=== PATIENT | female | born 1990 | race Caucasian/White ===

== ENCOUNTER 2021-08-21 16:17 | Inpatient (IN) | payer OTHER ==
[~2021-08-21] VITALS: Ht 170.2 cm; Wt 99.4 kg
[2021-08-21] MEDS ORDERED: PRENATAL TABLE1 EAC2 PO (16:51)
[2021-08-21] MEDS ORDERED: FISH OIL 1,2001 EAC4 PO (16:51)
[2021-08-21 16:52] LABS: BASOPHILS ABSOLUTE AUTO 0.03 K/mm3 (0.00-0.23); BASOPHILS PERCENT AUTO 0 % (0-2); EOSINOPHILS ABSOLUTE AUTO 0.09 K/mm3 (0.00-0.68); EOSINOPHILS PERCENT AUTO 1 % (0-6); Hematocrit 34.9 % (33.0-51.0); Hemoglobin 11.9 g/dL (11.5-16.0); IMMATURE GRAN PERCENT AUTO 1 % (0-1); LYMPHOCYTES ABSOLUTE AUTO 1.67 K/mm3 (0.84-5.20); LYMPHOCYTES PERCENT AUTO 18 % (21-46); MONOCYTES ABSOLUTE AUTO 0.72 K/mm3 (0.16-1.47); MONOCYTES PERCENT AUTO 8 % (4-13); Mean Corpuscular HGB 30.7 pg (26.0-34.0); Mean Corpuscular HGB Conc 34.1 g/dL (31.5-36.5); Mean Corpuscular Volume 90 fL (80-100); Mean Platelet Volume 11.8 fL (9.1-12.4); NEUTROPHILS ABSOLUTE AUTO 6.53 K/mm3 (1.96-9.15); NEUTROPHILS PERCENT AUTO 71 % (41-73); Platelet Count 132 K/mm3 (150-400); RDW Coefficient Variation 13.3 % (11.7-14.2); RDW Standard Deviation 43.8 fL (35.1-46.3); Red Blood Cell Count 3.88 M/mm3 (3.80-5.20); White Blood Cell Count 9.14 K/mm3 (4.00-11.30)
[2021-08-21] MEDS ORDERED: [UNRECOGNIZED DRUG - MIXTURE] PO (16:52)
[2021-08-21] MEDS ORDERED: PROBIOTIC1 EA13 PO (16:53)
[2021-08-21 17:09] LABS: Alanine Aminotransfer (ALT/SGP 16 U/L (12-78); Albumin, Blood 2.6 g/dL (3.4-5.0); Albumin/Globulin Ratio 0.6 (0.8-1.8); Alk Phos 182 U/L (50-136); Anion Gap 6 mmol/L (6-16); Aspartate Aminotrans (AST/SGOT 15 U/L (12-37); Bilirubin, Total 0.2 mg/dL (0.1-1.0); Blood Urea Nitrogen 9 mg/dL (8-24); Bun/Creatinine Ratio 13.2 (12.0-20.0); CO2, Blood 22 mmol/L (21-32); Calcium, Blood 9.1 mg/dL (8.5-10.1); Chloride, Blood 107 mmol/L (98-108); Creatinine, Blood 0.68 mg/dL (0.40-1.00); Globulin, Blood 4.3 g/dL (2.2-4.0); Glomerular Filtration Rate >60 (60-); Glucose, Blood 93 mg/dL (70-99); Potassium, Blood 4.1 mmol/L (3.5-5.5); Sodium, Blood 135 mmol/L (136-145); Total Protein, Blood 6.9 g/dL (6.4-8.2)
[2021-08-21 17:29] LABS: Influenza A, PCR NEGATIVE (NEGATIVE); Influenza B, PCR NEGATIVE (NEGATIVE); Resp Syncytial Virus, PCR NEGATIVE (NEGATIVE); SARS-Cov-2 (COVID-19) PCR, MMC NEGATIVE (NEGATIVE)
[2021-08-23 03:04] LABS: PCO2 Cord - Arterial 45.1 mmHg (40-50); PO2 Cord - Arterial 17.5 mmHg (16-20); pH Cord - Arterial 7.34 (7.28-7.35)
[2021-08-23 03:08] LABS: PCO2 Cord - Venous 39.4 mmHg (40-50); PO2 Cord - Venous 18.5 mmHg (28-32); pH Umbilical Cord - Venous 7.37 (7.26-7.35)
[2021-08-23 12:40] LABS: BASOPHILS ABSOLUTE AUTO 0.02 K/mm3 (0.00-0.23); BASOPHILS PERCENT AUTO 0 % (0-2); EOSINOPHILS PERCENT AUTO 0 % (0-6); Hematocrit 25.7 % (33.0-51.0); Hemoglobin 8.6 g/dL (11.5-16.0); IMMATURE GRAN ABSOLUTE AUTO 0.09 K/mm3 (0.00-0.10); IMMATURE GRAN PERCENT AUTO 1 % (0-1); LYMPHOCYTES ABSOLUTE AUTO 1.79 K/mm3 (0.84-5.20); LYMPHOCYTES PERCENT AUTO 14 % (21-46); MONOCYTES ABSOLUTE AUTO 0.79 K/mm3 (0.16-1.47); MONOCYTES PERCENT AUTO 6 % (4-13); Mean Corpuscular HGB 30.6 pg (26.0-34.0); Mean Corpuscular HGB Conc 33.5 g/dL (31.5-36.5); Mean Corpuscular Volume 92 fL (80-100); Mean Platelet Volume 12.4 fL (9.1-12.4); NEUTROPHILS ABSOLUTE AUTO 9.95 K/mm3 (1.96-9.15); NEUTROPHILS PERCENT AUTO 79 % (41-73); Platelet Count 115 K/mm3 (150-400); RDW Coefficient Variation 13.3 % (11.7-14.2); Red Blood Cell Count 2.81 M/mm3 (3.80-5.20); White Blood Cell Count 12.64 K/mm3 (4.00-11.30)
[2021-08-25] MEDS ORDERED: ACET500 PO (07:42)
[2021-08-25] MEDS ORDERED: IBUP800 PO (07:42)
[2021-08-25] MEDS ORDERED: DOCU100 (09:54)
[2021-08-25] MEDS ORDERED: Percocet 5-3251 EACH PO (09:54)
[2021-08-25] MEDS ORDERED: ASPIR 8181 M1 PO (09:55)
== END 2021-08-25 10:10 | disposition home or self-care (01) | DRG 788 ==
LOC: OBS 16:17 → BC 16:18 → OBS 16:24 → BC 16:26
PROVIDERS: Obstetrics & Gynecology; ADMIT Nurse Practitioner Obstetrics & Gynecology
PROC: 3E0P7VZ Introduction of Hormone into Female Reproductive, Via Natural or Artificial Opening (ICD-10-PCS; 2021-08-23)
PROC: 00HU33Z Insertion of Infusion Device into Spinal Canal, Percutaneous Approach (ICD-10-PCS; 2021-08-23)
PROC: 3E0R3BZ Introduction of Anesthetic Agent into Spinal Canal, Percutaneous Approach (ICD-10-PCS; 2021-08-23)
PROC: 10907ZC Drainage of Amniotic Fluid, Therapeutic from Products of Conception, Via Natural or Artificial Opening (ICD-10-PCS; 2021-08-23)
PROC: 10H07YZ Insertion of Other Device into Products of Conception, Via Natural or Artificial Opening (ICD-10-PCS; 2021-08-23)
PROC: 10D00Z1 Extraction of Products of Conception, Low, Open Approach (ICD-10-PCS; principal; 2021-08-23 01:30)
DX: O48.0 Post-term pregnancy (principal); O13.4 Gestational [pregnancy-induced] hypertension without significant proteinuria, complicating childbirth; Z20.822 Contact with and (suspected) exposure to COVID-19; O36.63X0 Maternal care for excessive fetal growth, third trimester, not applicable or unspecified; O77.0 Labor and delivery complicated by meconium in amniotic fluid; Z67.10 Type A blood, Rh positive; Z3A.40 40 weeks gestation of pregnancy; Z37.0 Single live birth; Z90.89 Acquired absence of other organs; Z79.82 Long term (current) use of aspirin; Z79.899 Other long term (current) drug therapy; O99.03 Anemia complicating the puerperium
CPT/HCPCS: 0241U; 36415; 51702; 80053; 82803; 85025; 86850; 86900; 86901; A9270; J0690; J1885; J2001; J2405; J2590; J2765; J3010; J7120

== ENCOUNTER 2023-10-29 06:12 | Inpatient (IN) | payer OTHER ==
[2023-10-29] VITALS (26 sets, daily range): BP systolic 101–145; BP diastolic 52–88
[~2023-10-29] VITALS: Ht 167.6 cm; Wt 127.0 kg
[~2023-10-29 06:12] MED LIST: ACET500 PO; ASPIR 8181 M1 PO; DOCU100; FISH OIL 1,2001 EAC4 PO; IBUP800 PO; PRENATAL TABLE1 EAC2 PO; PROBIOTIC1 EA13 PO; Percocet 5-3251 EACH PO; [UNRECOGNIZED DRUG - MIXTURE] PO
[2023-10-29] MEDS ORDERED: Bupivacaine 0.5% HCl 5 MG/ML 30MLVIAL XX SCH (08:40)
[2023-10-29] MEDS ORDERED: Oxytocin 10 Unit / ML Vial IM SCH (08:40)
[2023-10-29] MEDS ORDERED: Lidocaine HCl 1% 30 ML SDV XX SCH (08:40)
[2023-10-29] MEDS ORDERED: Bupivacaine HCl 2.5 MG/ML 10ML P/F Injection XX SCH (08:40)
[2023-10-29] MEDS ORDERED: Lactated Ringer's 1,000 ML IV PRN (08:40)
[2023-10-29] MEDS ORDERED: Methylergonovine Maleate 0.2MG / ML 1ML Amp IM SCH (08:40)
[2023-10-29] MEDS ORDERED: Castor Oil 59.146 ML BTL TOP SCH (08:40)
[2023-10-29] MEDS ORDERED: FentaNYL 2mcg/ml-Bup 0.1% Epd 250 ML EPI PRN (08:40)
[2023-10-29] MEDS ORDERED: ePHEDrine Sulfate 50 MG/ML 1ML Injection XX PRN (08:40)
[2023-10-29] MEDS ORDERED: LR Oxytocin 20 Units 1,000 ML IV SCH (08:40)
[2023-10-29] MEDS ORDERED: Lactated Ringer's 1,000 ML IV SCH ×3 (08:40→21:35)
[2023-10-29] MEDS ORDERED: Misoprostol 200 MCG Tab PR SCH (08:40)
[2023-10-29 08:50] LABS: BASOPHILS ABSOLUTE AUTO 0.02 K/mm3 (0.00-0.23); BASOPHILS PERCENT AUTO 0 % (0-2); EOSINOPHILS ABSOLUTE AUTO 0.04 K/mm3 (0.00-0.68); EOSINOPHILS PERCENT AUTO 0 % (0-6); Hematocrit 32.8 % (33.0-51.0); IMMATURE GRAN PERCENT AUTO 1 % (0-1); LYMPHOCYTES ABSOLUTE AUTO 1.88 K/mm3 (0.84-5.20); LYMPHOCYTES PERCENT AUTO 14 % (21-46); MONOCYTES ABSOLUTE AUTO 0.84 K/mm3 (0.16-1.47); MONOCYTES PERCENT AUTO 6 % (4-13); Mean Corpuscular HGB 29.5 pg (26.0-34.0); Mean Corpuscular HGB Conc 33.5 g/dL (31.5-36.5); Mean Corpuscular Volume 88 fL (80-100); Mean Platelet Volume 11.6 fL (9.1-12.4); NEUTROPHILS ABSOLUTE AUTO 10.87 K/mm3 (1.96-9.15); NEUTROPHILS PERCENT AUTO 79 % (41-73); Platelet Count 156 K/mm3 (150-400); RDW Coefficient Variation 14.7 % (11.7-14.2); RDW Standard Deviation 47.7 fL (35.1-46.3); Red Blood Cell Count 3.73 M/mm3 (3.80-5.20); White Blood Cell Count 13.75 K/mm3 (4.00-11.30)
[2023-10-29] MEDS ORDERED: FentaNYL Citrate 50 MCG/ML 2 ML Injection IV PRN (08:55)
[2023-10-29] MEDS ORDERED: Ondansetron HCl 2 MG / ML 2ML Vial ONE (08:57)
[2023-10-29] MEDS ORDERED: Ondansetron HCl 2 MG / ML 2ML Vial IV PRN (09:00)
[2023-10-29] MEDS ORDERED: Calcium Carbonate 500 MG Tab Chew PO PRN (16:25)
[2023-10-29] MEDS ORDERED: Acetaminophen 325 MG TABLET PO PRN (20:50)
[2023-10-29] MEDS ORDERED: Simethicone 80 MG Chew PO PRN (21:05)
[2023-10-29] MEDS ORDERED: CeFAZolin Sodium 3,000 MG in NS 100 ML IV SCH (21:35)
[2023-10-29] MEDS ORDERED: Azithromycin 500 MG in NS 250 ML IV SCH (21:40)
[2023-10-29] MEDS ORDERED: Metoclopramide HCl 5MG / ML 2ML Vial IV ONE (21:50)
[2023-10-29] MEDS ORDERED: Citric Acid/Sodium Citrate 30 ML BTL PO ONE (21:50)
[2023-10-29] MEDS ORDERED: FentaNYL Citrate 50 MCG/ML 2 ML Injection ONE (22:12)
[2023-10-29] MEDS ORDERED: Bupivacaine 0.75%/Dext 8.25% 2 ML Amp IT ONE (22:12)
[2023-10-29] MEDS ORDERED: ePHEDrine Sulfate 50 MG/ML 1ML Injection ONE (23:17)
[2023-10-29] MEDS ORDERED: Oxytocin 10 Unit / ML Vial ONE ×2 (23:26→23:39)
--- NOTE | 2023-10-29 23:31 | NUR ---
10/29/23 2331 Mariposa Spencer SPINAL NERVE BLOCK PLACED BY DR. POST UPON ENTRY TO OR. PT TOLERATED WELL.
[2023-10-30] VITALS (21 sets, daily range): BP systolic 96–130; BP diastolic 50–72
[2023-10-30] MEDS ORDERED: Methylergonovine Maleate 0.2 MG Tab PO PRN (00:20)
[2023-10-30] MEDS ORDERED: Magnesium Hydroxide Conc 10 ML UDC PO PRN (00:20)
[2023-10-30] MEDS ORDERED: Acetaminophen 500 MG Tab PO PRN (00:20)
[2023-10-30] MEDS ORDERED: Misoprostol 200 MCG Tab PR PRN (00:20)
[2023-10-30] MEDS ORDERED: Carboprost Tromethamine 250 MCG/ML 1ML Amp IM PRN (00:25)
[2023-10-30] MEDS ORDERED: Ondansetron HCl 2 MG / ML 2ML Vial IV PRN (00:25)
[2023-10-30] MEDS ORDERED: DiphenhydrAMINE HCL 25 MG Cap PO PRN (00:25)
[2023-10-30] MEDS ORDERED: OxyCODONE HCL 5 MG TAB PO PRN (00:25)
[2023-10-30] MEDS ORDERED: Lanolin Cream TOP PRN (00:25)
[2023-10-30] MEDS ORDERED: Simethicone 80 MG Chew PO PRN (00:30)
[2023-10-30] MEDS ORDERED: Lactated Ringer's 1,000 ML IV SCH (00:30)
[2023-10-30] MEDS ORDERED: LR Oxytocin 20 Units 1,000 ML IV SCH (00:30)
[2023-10-30] MEDS ORDERED: OxyCODONE 5 mg/Acetamin 325 mg TABLET PO PRN (00:30)
[2023-10-30] MEDS ORDERED: Ketorolac Tromethamine 30mg Vial IV SCH (01:00)
[2023-10-30 06:28] LABS: BASOPHILS ABSOLUTE AUTO 0.01 K/mm3 (0.00-0.23); BASOPHILS PERCENT AUTO 0 % (0-2); EOSINOPHILS PERCENT AUTO 0 % (0-6); Hematocrit 28.2 % (33.0-51.0); Hemoglobin 9.5 g/dL (11.5-16.0); IMMATURE GRAN ABSOLUTE AUTO 0.11 K/mm3 (0.00-0.10); IMMATURE GRAN PERCENT AUTO 1 % (0-1); LYMPHOCYTES ABSOLUTE AUTO 1.89 K/mm3 (0.84-5.20); LYMPHOCYTES PERCENT AUTO 11 % (21-46); MONOCYTES ABSOLUTE AUTO 1.29 K/mm3 (0.16-1.47); MONOCYTES PERCENT AUTO 7 % (4-13); Mean Corpuscular HGB 29.9 pg (26.0-34.0); Mean Corpuscular HGB Conc 33.7 g/dL (31.5-36.5); Mean Corpuscular Volume 89 fL (80-100); Mean Platelet Volume 11.3 fL (9.1-12.4); NEUTROPHILS PERCENT AUTO 81 % (41-73); Platelet Count 153 K/mm3 (150-400); RDW Coefficient Variation 14.7 % (11.7-14.2); RDW Standard Deviation 47.7 fL (35.1-46.3); Red Blood Cell Count 3.18 M/mm3 (3.80-5.20)
[2023-10-30] MEDS ORDERED: Ibuprofen 400 MG Tab PO SCH (08:00)
[2023-10-30] MEDS ORDERED: Docusate Sodium 100 MG Cap PO SCH (09:00)
[2023-10-30] MEDS ORDERED: Prenatal Vit/FE Fumarate/FA 1 Tab PO SCH (09:00)
[2023-10-31 01:42] VITALS: BP 126/69
[2023-10-31 04:55] VITALS: BP 123/61
[2023-10-31 07:28] VITALS: BP 133/58
[2023-10-31] MEDS ORDERED: IBUP800 PO (10:09)
[2023-10-31] MEDS ORDERED: Percocet 5-3251 EACH PO (10:09)
--- NOTE | 2023-10-31 12:00 | NUR ---
PT DISCHARGED TO HOME WITH BABY. D/C INSTRUCTIONS REVIEWED, QUESTIONS ANSWERED, AND COPY PROVIDED. PT DEMONSTRATED PROPER CAR SEAT USE. ESCORTED TO FRONT BY CRUZITO MARX. ALL BELONGINGS WITH PT.
--- NOTE | 2023-11-02 08:45 | NUR ---
UPDATED DOCUMENTATION L&D SUMMARY PER EMR
== END 2023-10-31 12:00 | disposition home or self-care (01) | DRG 788 ==
LOC: OBS 06:12 → BC 06:21 → OBS 08:32 → BC 08:34
PROVIDERS: Obstetrics & Gynecology; ADMIT Advanced Practice Midwife
PROC: 10D00Z1 Extraction of Products of Conception, Low, Open Approach (ICD-10-PCS; principal; 2023-10-29 21:45)
DX: O48.0 Post-term pregnancy (principal); O34.211 Maternal care for low transverse scar from previous cesarean delivery; Z90.49 Acquired absence of other specified parts of digestive tract; Z98.890 Other specified postprocedural states; Z79.82 Long term (current) use of aspirin; Z79.899 Other long term (current) drug therapy; Z3A.40 40 weeks gestation of pregnancy; Z37.0 Single live birth
CPT/HCPCS: 36415; 51702; 81003; 85025; 86850; 86900; 86901; 86923; A9270; J0456; J0690; J1885; J2405; J2590; J2765; J3010; J7050; J7120

== ENCOUNTER 2025-02-20 10:47 | Emergency (ER) | payer BC ==
[~2025-02-20] VITALS: Ht 165.1 cm; Wt 102.1 kg
[2025-02-20 12:54] LABS: BASOPHILS ABSOLUTE AUTO 0.03 K/mm3 (0.00-0.23); BASOPHILS PERCENT AUTO 0 % (0-2); EOSINOPHILS ABSOLUTE AUTO 0.07 K/mm3 (0.00-0.68); EOSINOPHILS PERCENT AUTO 1 % (0-6); Hematocrit 41.3 % (33.0-51.0); Hemoglobin 14.2 g/dL (11.5-16.0); IMMATURE GRAN ABSOLUTE AUTO 0.02 K/mm3 (0.00-0.10); IMMATURE GRAN PERCENT AUTO 0 % (0-1); LYMPHOCYTES ABSOLUTE AUTO 1.99 K/mm3 (0.84-5.20); LYMPHOCYTES PERCENT AUTO 26 % (21-46); MONOCYTES ABSOLUTE AUTO 0.44 K/mm3 (0.16-1.47); MONOCYTES PERCENT AUTO 6 % (4-13); Mean Corpuscular HGB Conc 34.4 g/dL (31.5-36.5); Mean Corpuscular Volume 84 fL (80-100); NEUTROPHILS ABSOLUTE AUTO 5.25 K/mm3 (1.96-9.15); NEUTROPHILS PERCENT AUTO 67 % (41-73); NRBC ABSOLUTE 0.00 K/mm3 (0.00-0.02); NRBC Auto 0.0 /100 WBC (0.0-0.2); Platelet Count 202 K/mm3 (150-400); RDW Coefficient Variation 13.6 % (11.7-14.2); RDW Standard Deviation 42.2 fL (35.1-46.3)
[2025-02-20 13:10] LABS: Source, Urine Clean Catch
[2025-02-20 13:13] LABS: Bilirubin, Urine Neg (Neg); Glucose Qualitative, Urine Neg (Neg); Ketones, Urine Neg (Neg); Leukocyte Esterase, Urine Neg (Neg); Protein, Urine Neg (Neg); Specific Gravity, Urine 1.010 (1.003-1.022); Urobilinogen, Urine NORM (Normal)
[2025-02-20 13:24] LABS: Color, Urine Pale Yellow (P-Yellow)
[2025-02-20 13:25] LABS: White Blood Cells, Urine 0-2 /hpf (0-5)
[2025-02-20 14:32] VITALS: BP 142/86
[2025-02-20 15:02] LABS: Alanine Aminotransfer (ALT/SGP 19.0 U/L (12-78); Albumin, Blood 3.5 g/dL (3.4-5.0); Albumin/Globulin Ratio 0.9 (0.8-1.8); Anion Gap 9.0 mmol/L (3-11); Aspartate Aminotrans (AST/SGOT 11.0 U/L (12-37); Beta HCG, Quantitative, Serum 1203.0 mIU/mL (0-3); Bilirubin, Total 0.3 mg/dL (0.1-1.0); Blood Urea Nitrogen 8.0 mg/dL (8-24); CO2, Blood 23.0 mmol/L (21-32); Calcium, Blood 9.6 mg/dL (8.5-10.1); Chloride, Blood 109.0 mmol/L (98-108); Creatinine, Blood 0.56 mg/dL (0.40-1.00); Globulin, Blood 3.8 g/dL (2.2-4.0); Glucose, Blood 102.0 mg/dL (70-99); Potassium, Blood 3.8 mmol/L (3.5-5.5); Sodium, Blood 137.0 mmol/L (136-145); Total Protein, Blood 7.3 g/dL (6.4-8.2)
== END 2025-02-20 14:33 | disposition home or self-care (01) ==
LOC: ER 10:47
PROVIDERS: Student in an Organized Health Care Education/Training Program
DX: O03.9 Complete or unspecified spontaneous abortion without complication (principal); Z79.899 Other long term (current) drug therapy
CPT/HCPCS: 76815; 80053; 81001; 84702; 85025; 86900; 86901; 99284-25

== ENCOUNTER 2025-02-22 20:38 | Inpatient (IN) | payer BC ==
[~2025-02-22] VITALS: Ht 165.1 cm; Wt 99.0 kg
[2025-02-22 21:09] LABS: BASOPHILS ABSOLUTE AUTO 0.04 K/mm3 (0.00-0.23); BASOPHILS PERCENT AUTO 0 % (0-2); EOSINOPHILS ABSOLUTE AUTO 0.05 K/mm3 (0.00-0.68); EOSINOPHILS PERCENT AUTO 0 % (0-6); Hematocrit 36.3 % (33.0-51.0); Hemoglobin 12.5 g/dL (11.5-16.0); IMMATURE GRAN ABSOLUTE AUTO 0.11 K/mm3 (0.00-0.10); IMMATURE GRAN PERCENT AUTO 1 % (0-1); LYMPHOCYTES ABSOLUTE AUTO 1.87 K/mm3 (0.84-5.20); LYMPHOCYTES PERCENT AUTO 10 % (21-46); MONOCYTES ABSOLUTE AUTO 0.54 K/mm3 (0.16-1.47); MONOCYTES PERCENT AUTO 3 % (4-13); Mean Corpuscular HGB Conc 34.4 g/dL (31.5-36.5); Mean Corpuscular Volume 84 fL (80-100); NEUTROPHILS ABSOLUTE AUTO 17.02 K/mm3 (1.96-9.15); NEUTROPHILS PERCENT AUTO 87 % (41-73); NRBC ABSOLUTE 0.00 K/mm3 (0.00-0.02); NRBC Auto 0.0 /100 WBC (0.0-0.2); Platelet Count 256 K/mm3 (150-400); RDW Coefficient Variation 13.8 % (11.7-14.2); RDW Standard Deviation 42.6 fL (35.1-46.3)
[2025-02-22 21:31] LABS: Alanine Aminotransfer (ALT/SGP 16.0 U/L (12-78); Albumin, Blood 3.3 g/dL (3.4-5.0); Albumin/Globulin Ratio 1.0 (0.8-1.8); Anion Gap 11.0 mmol/L (3-11); Aspartate Aminotrans (AST/SGOT 9.0 U/L (12-37); Bilirubin, Total 0.3 mg/dL (0.1-1.0); Blood Urea Nitrogen 12.0 mg/dL (8-24); CO2, Blood 19.0 mmol/L (21-32); Calcium, Blood 9.0 mg/dL (8.5-10.1); Chloride, Blood 111.0 mmol/L (98-108); Creatinine, Blood 0.68 mg/dL (0.40-1.00); Globulin, Blood 3.3 g/dL (2.2-4.0); Glucose, Blood 220.0 mg/dL (70-99); Potassium, Blood 3.5 mmol/L (3.5-5.5); Sodium, Blood 137.0 mmol/L (136-145); Total Protein, Blood 6.6 g/dL (6.4-8.2)
[2025-02-22] MEDS ORDERED: NS 1,000 ML IV SCH (22:20)
[2025-02-22] MEDS ORDERED: Tranexamic Acid 100 ML IV ONE (22:40)
[2025-02-23] VITALS (33 sets, daily range): BP systolic 96–1238; BP diastolic 59–91
[2025-02-23] MEDS ORDERED: Ondansetron HCl 2 MG / ML 2ML Vial IV PRN ×3 (00:55→11:05)
[2025-02-23] MEDS ORDERED: Ondansetron HCl 2 MG / ML 2ML Vial IV ONE (03:00)
[2025-02-23 03:38] LABS: Hematocrit 36.8 % (33.0-51.0); Hemoglobin 12.6 g/dL (11.5-16.0); Mean Corpuscular HGB Conc 34.2 g/dL (31.5-36.5); Mean Corpuscular Volume 85 fL (80-100); NRBC ABSOLUTE 0.00 K/mm3 (0.00-0.02); NRBC Auto 0.0 /100 WBC (0.0-0.2); RDW Coefficient Variation 13.3 % (11.7-14.2); RDW Standard Deviation 41.3 fL (35.1-46.3)
[2025-02-23 03:39] LABS: Platelet Count 252 K/mm3 (150-400)
[2025-02-23 03:54] LABS: BAND PERCENT MAN 4 % (0-8); BASOPHILS ABSOLUTE MAN 0.00 K/mm3 (0.00-0.23); BASOPHILS PERCENT MAN 0 % (0-2); EOSINOPHILS ABSOLUTE MAN 0.00 K/mm3 (0.00-0.68); EOSINOPHILS PERCENT MAN 0 % (0-6); LYMPHOCYTES ABSOLUTE MAN 1.34 K/mm3 (0.84-5.20); LYMPHOCYTES PERCENT MAN 7 % (21-46); METAMYELOCYTE ABSOLUTE MAN 0.19 K/mm3 (0.00-0.00); METAMYELOCYTE PERCENT MAN 1 % (0-0); MONOCYTES ABSOLUTE MAN 0.38 K/mm3 (0.16-1.47); MONOCYTES PERCENT MAN 2 % (4-13); NEUTROPHILS ABSOLUTE MAN 17.28 K/mm3 (1.96-9.15); SEG NEUTROPHILS PERCENT MAN 86 % (41-73)
[2025-02-23] MEDS ORDERED: Ketorolac Tromethamine 15mg Vial IV PRN (05:15)
--- NOTE | 2025-02-23 08:19 | NUR ---
Call to answering service for Dr. Justice at 0745, reporting pt's symptoms of HR 120-135, low blood pressure (initially 98 systolic) with reported dizzyness, weakness and racing heart by pt. LR infusing at 125 cc/hour. Pt soaked a large pad and attends in 1 hour and passed large blood clot when we were initially assessing her. Denies cramping at this time. Reports that she vomited blood last night in the ED. No reply, so called Dr. Justice cell phone at this time 0815 to again report the pt's condition and request CBC to be done sooner. No other orders at this time, except to keep the Pt NPO for possible D&C. Asked if hospitalist consult is needed, and Dr. Justice declined at this time.
[2025-02-23 09:00] LABS: BASOPHILS ABSOLUTE AUTO 0.04 K/mm3 (0.00-0.23); BASOPHILS PERCENT AUTO 0 % (0-2); EOSINOPHILS ABSOLUTE AUTO 0.00 K/mm3 (0.00-0.68); EOSINOPHILS PERCENT AUTO 0 % (0-6); Hematocrit 30.2 % (33.0-51.0); Hemoglobin 10.5 g/dL (11.5-16.0); IMMATURE GRAN ABSOLUTE AUTO 0.27 K/mm3 (0.00-0.10); IMMATURE GRAN PERCENT AUTO 1 % (0-1); LYMPHOCYTES ABSOLUTE AUTO 2.21 K/mm3 (0.84-5.20); LYMPHOCYTES PERCENT AUTO 11 % (21-46); MONOCYTES ABSOLUTE AUTO 0.49 K/mm3 (0.16-1.47); MONOCYTES PERCENT AUTO 2 % (4-13); Mean Corpuscular HGB Conc 34.8 g/dL (31.5-36.5); Mean Corpuscular Volume 84 fL (80-100); NEUTROPHILS ABSOLUTE AUTO 17.50 K/mm3 (1.96-9.15); NEUTROPHILS PERCENT AUTO 85 % (41-73); NRBC ABSOLUTE 0.00 K/mm3 (0.00-0.02); NRBC Auto 0.0 /100 WBC (0.0-0.2); Platelet Count 300 K/mm3 (150-400); RDW Coefficient Variation 13.7 % (11.7-14.2); RDW Standard Deviation 42.4 fL (35.1-46.3)
--- NOTE | 2025-02-23 09:10 | NUR ---
NOTED hgb has dropped to 10. Call to Dr. Justcie.
--- NOTE | 2025-02-23 09:10 | NUR ---
UPDATE DR ROMERO CONTACTED REGARDING PATIENT LAB RESULTS. PATIENT CONTINUES TO REPORT DIZZINESS AND FEELING FAINT. PROVIDER TO ROUND ON PATIENT THIS AM TO ASSESS, TO OBTAIN CONSENT FOR PROCEDURE AT THIS TIME. 0920 DR ROMERO AT BEDSIDE.
[2025-02-23] MEDS ORDERED: Tranexamic Acid 100 ML IV SCH (09:40)
[2025-02-23] MEDS ORDERED: CeFAZolin Sodium 2,000 MG in NS 100 ML IV SCH (09:40)
[2025-02-23] MEDS ORDERED: Methylergonovine Maleate 0.2MG / ML 1ML Amp ONE (09:57)
--- NOTE | 2025-02-23 09:59 | NUR ---
Pt taken to OR for D&C with Dr. Justice
--- NOTE | 2025-02-23 10:02 | NUR ---
History, Chart, Medications and Allergies reviewed before start of procedure. Pre-Op teaching done. Pt verbalizes understanding. Patient confirms NPO status and agrees with scheduled surgery.
[2025-02-23] MEDS ORDERED: Etomidate 2MG / ML 10ML Vial ONE (10:09)
[2025-02-23] MEDS ORDERED: Midazolam HCl 1MG / ML 2ML Vial ONE (10:14)
[2025-02-23] MEDS ORDERED: FentaNYL Citrate 50 MCG/ML 2 ML Injection ONE (10:14)
[2025-02-23] MEDS ORDERED: Ondansetron HCl 2 MG / ML 2ML Vial ONE (10:21)
[2025-02-23] MEDS ORDERED: Rocuronium Bromide 10 MG/ML 5ML Injection IV ONE (10:21)
[2025-02-23] MEDS ORDERED: Dexamethasone Sod Phos 10 MG/ML 1ML VIAL ONE (10:21)
[2025-02-23] MEDS ORDERED: Sugammadex Sodium 200 MG/2ML SDV (100 MG/ML) ONE ×2 (10:42→10:56)
[2025-02-23] MEDS ORDERED: Metoclopramide HCl 5MG / ML 2ML Vial IV PRN (11:10)
[2025-02-23] MEDS ORDERED: HydrALAZINE HCl 20 MG / ML 1ML Vial IV PRN (11:10)
[2025-02-23] MEDS ORDERED: ePHEDrine Sulfate 50 MG/ML 1ML Injection IV PRN (11:10)
[2025-02-23] MEDS ORDERED: FentaNYL Citrate 50 MCG/ML 2 ML Injection IV PRN (11:10)
[2025-02-23] MEDS ORDERED: HYDROmorphone HCl/Pf 1MG SYR IV PRN ×2 (11:10)
[2025-02-23] MEDS ORDERED: OxyCODONE 5 mg/Acetamin 325 mg TABLET PO PRN (11:15)
[2025-02-23] MEDS ORDERED: Ketorolac Tromethamine 30mg Vial IV PRN (11:25)
[2025-02-23 14:18] LABS: Hematocrit 24.1 % (33.0-51.0); Hemoglobin 8.6 g/dL (11.5-16.0); Mean Corpuscular HGB Conc 35.7 g/dL (31.5-36.5); Mean Corpuscular Volume 84 fL (80-100); NRBC ABSOLUTE 0.00 K/mm3 (0.00-0.02); NRBC Auto 0.0 /100 WBC (0.0-0.2); Platelet Count 200 K/mm3 (150-400); RDW Coefficient Variation 13.9 % (11.7-14.2); RDW Standard Deviation 43.0 fL (35.1-46.3)
--- NOTE | 2025-02-23 15:13 | NUR ---
Pt up to BSC with RN assistance; she was lightheaded and dizzy. Heart rate increased to 150 while up. Pt assisted back to bed. Hgb results noted 8; Dr. Justice called, and 2 u PRBCs approved to administer at this time.
[2025-02-23] MEDS ORDERED: NS 500 ML IV SCH (15:15)
--- NOTE | 2025-02-23 18:39 | NUR ---
UPDATE ATTEMPTED TO CONTACT PROVIDER REGARDING POTENTIAL LAB ORDERS AFTER SECOND BLOOD TRANSFUSION.
--- NOTE | 2025-02-23 19:16 | NUR ---
No symptoms during the 15 minutes of 2nd PRBC infusion. V/s WNL; rate increased to 150 cc/hour. BEdside shift report done.
--- NOTE | 2025-02-23 19:21 | NUR ---
SHIFT SUMMARY PATIENT IS ALERT AND ORIENTED, ABLE TO FOLLOW COMMANDS AND MAKE NEEDS KNOWN. PATIENT REPORTS SIGNIFICANT DIZZINESS THROUGHOUT SHIFT, PRIMARILY WITH POSITION CHANGES. TELE IN PLACE, HR 100'S-150'S, INCREASED TACHYCARDIA WITH EXERTION. PATIENT SOAKING THROUGH PADS AND ATTENDS WITHIN 1.5 HOURS, PROVIDER NOTIFIED, D&C DONE THIS AM. PATIENT RECEIVED TRANSFUSIONS THIS SHIFT WITH IMPROVEMENT OF SYMPTOMS BY SHIFT CHANGE. PATIENT REPORTING INTERMITTENT DIZZINESS. PATIENT IS A 1P ASSIST TO BSC. PATIENT IS IN BED, BED IN LOWEST POSITION, CALL LIGHT WITHING REACH. BLOOD TRANSFUSING, VSS AFTER FIRST 15 MINUTES, REPORT GIVEN TO HOSE TESTER RN.
[2025-02-24 00:02] VITALS: BP 123/66
[2025-02-24 04:00] VITALS: BP 103/67
--- NOTE | 2025-02-24 06:00 | NUR ---
SHIFT SUMMARY PT HAS TOLERATED NIGHT WELL WITH NO SIGNIFICANT EVENTS OR CHANGES IN STATUS. PT RECEIVED REMAINDER OF BLOOD PRODUCTS AND HAS SINCE FELT LESS DIZZINESS OVERNIGHT. PT WAS ABLE TO STAND AND PIVOT TO BEDSIDE COMMODE WITHOUT ISSUE. BP AND PULSE HAVE REMAINED STABLE OVERNIGHT. PT CURRENTLY RESTING COMFORTABLY IN ROOM, CALL LIGHT WITHIN REACH. WILL CONTINUE TO MONITOR UNTIL REPORT PASSED TO DAY SHIFT TEAM.
[2025-02-24 07:47] VITALS: BP 115/55
--- NOTE | 2025-02-24 07:47 | NUR ---
Lab reports that two phlebotomists have not been able to draw labs on the pt this morning; they are waiting on a third one to come and attempt again.
[2025-02-24 08:17] LABS: BASOPHILS ABSOLUTE AUTO 0.02 K/mm3 (0.00-0.23); BASOPHILS PERCENT AUTO 0 % (0-2); EOSINOPHILS ABSOLUTE AUTO 0.01 K/mm3 (0.00-0.68); EOSINOPHILS PERCENT AUTO 0 % (0-6); Hematocrit 24.5 % (33.0-51.0); Hemoglobin 8.8 g/dL (11.5-16.0); IMMATURE GRAN ABSOLUTE AUTO 0.10 K/mm3 (0.00-0.10); IMMATURE GRAN PERCENT AUTO 1 % (0-1); LYMPHOCYTES ABSOLUTE AUTO 3.71 K/mm3 (0.84-5.20); LYMPHOCYTES PERCENT AUTO 32 % (21-46); MONOCYTES ABSOLUTE AUTO 0.56 K/mm3 (0.16-1.47); MONOCYTES PERCENT AUTO 5 % (4-13); Mean Corpuscular HGB Conc 35.9 g/dL (31.5-36.5); Mean Corpuscular Volume 84 fL (80-100); NEUTROPHILS ABSOLUTE AUTO 7.13 K/mm3 (1.96-9.15); NEUTROPHILS PERCENT AUTO 62 % (41-73); NRBC ABSOLUTE 0.00 K/mm3 (0.00-0.02); NRBC Auto 0.0 /100 WBC (0.0-0.2); Platelet Count 148 K/mm3 (150-400); RDW Coefficient Variation 14.0 % (11.7-14.2); RDW Standard Deviation 42.8 fL (35.1-46.3)
--- NOTE | 2025-02-24 11:59 | NUR ---
DISCHARGE: PT D/C AT APPROX 1130, ALL BELONGINGS GIVEN TO PT. D/C INSTRUCTIONS GIVEN. PT LEFT VIA W/C WITH .
== END 2025-02-24 11:30 | disposition home or self-care (01) | DRG 770 ==
LOC: ER 20:38 → BC 20:39 → PCU 20:39 → ER 20:39 → PCU 02-23 03:41
PROVIDERS: Obstetrics & Gynecology; Physician Assistant; ADMIT Obstetrics & Gynecology
PROC: 10D17ZZ Extraction of Products of Conception, Retained, Via Natural or Artificial Opening (ICD-10-PCS; principal; 2025-02-23 10:00)
DX: O03.9 Complete or unspecified spontaneous abortion without complication (principal); D62 Acute posthemorrhagic anemia; O03.6 Delayed or excessive hemorrhage following complete or unspecified spontaneous abortion; E86.0 Dehydration; Z90.89 Acquired absence of other organs; Z79.899 Other long term (current) drug therapy; Z98.891 History of uterine scar from previous surgery
CPT/HCPCS: 36415; 36430; 76801; 76815; 76817; 80053; 81001; 84702; 85025; 85027; 86850; 86900; 86901; 86923; 88305; 93005; 93010; 96374; 96375; 99284-25; 99285-25; A9270; G0378; J0690; J1100; J2210; J2250; J2405; J2704; J3010; J7030; J7120; P9016